=== PATIENT | male | born 1990 | race Caucasian/White ===

== ENCOUNTER 2018-03-07 12:46 | Day surgery (SDC) | payer BC ==
[~2018-03-07 12:46] MED LIST: Buffered Lidocaine 0.9% SYRIN* 5 ML/SYR SYRINGE INTRADERM ONE; Famotidine IV* 10 MG/ML 2 ML (20 mg) IV ONE; Metoclopramide TAB* 10 MG PO ONE
[2018-03-07] MEDS ORDERED: Metoclopramide TAB* 10 MG ONE (13:45)
[2018-03-07] MEDS ORDERED: Famotidine IV* 10 MG/ML 2 ML (20 mg) ONE (13:45)
[2018-03-07] MEDS ORDERED: Clindamycin 900 MG IVPREMIX(* 900 MG/50 ML SDV IV ONE (13:46)
[2018-03-07] MEDS ORDERED: Lidocaine 2% PF * 5 ML VIAL ONE (13:49)
[2018-03-07] MEDS ORDERED: fentaNYL* 50 MCG/ML 2 ML VIAL (100 MCG VIAL) ONE ×2 (13:49→17:43)
[2018-03-07] MEDS ORDERED: Ketorolac INJ* 30 MG/ML 1 ML VIAL ONE (13:49)
[2018-03-07] MEDS ORDERED: Dexamethasone IV* 4 MG/ML 1 ML (4 MG) ONE (13:49)
[2018-03-07] MEDS ORDERED: Cisatracurium* 2 MG/ML MDV 5 ML ONE (13:49)
[2018-03-07] MEDS ORDERED: Ondansetron INJ* 2 MG/ML VIAL ONE (13:49)
[2018-03-07] MEDS ORDERED: Propofol* 10 MG/ML 20 ML BTL IV PUSH ONE (13:49)
[2018-03-07] MEDS ORDERED: Midazolam* 1 MG/ML 5 ML VIAL (5 MG) ONE (13:50)
[2018-03-07] MEDS ORDERED: Ondansetron INJ* 2 MG/ML VIAL IV PRN (15:56)
[2018-03-07] MEDS ORDERED: Naloxone* 0.4 MG/ML 1 ML VIAL IV PRN (15:56)
[2018-03-07] MEDS ORDERED: fentaNYL* 50 MCG/ML 2 ML VIAL (100 MCG VIAL) IV PRN (15:56)
[2018-03-07] MEDS ORDERED: oxyCODONE/Acetamin 5/325 MG* TAB PO PRN (15:56)
[2018-03-07] MEDS ORDERED: HYDROmorphone INJ* 0.5 MG/0.5 ML SYRINGE ONE (16:23)
[2018-03-07 17:47] VITALS: BP 122/92
--- NOTE | 2018-03-07 19:57 | RAD ---
INDICATION: ORIF RIGHT clavicle fracture. COMPARISON: March 02, 2018 radiographs TECHNIQUE: 7.5 seconds fluoroscopy. FINDINGS: Spot images document 2 cortical plates traversing the mid clavicular fracture with anatomic alignment. Small bone fragment noted in the soft tissues superior to the fracture site. Overlying soft tissue swelling. IMPRESSION: Interoperative control films. CPT II Codes: G9500
--- NOTE | 2018-03-14 12:26 | OP ---
DATE OF OPERATION: 03/07/18 - [facility] DATE OF : 89 SURGEON: Arnoldo Sam MD [employer] SUPERVISOR: ROBERTO CARLOS Bar. An customer care assistant was needed for the procedure to aid in positioning of the arm and retraction. ANESTHESIA: General. PRE-OP DIAGNOSIS: Right clavicle displaced midshaft fracture. POST-OP DIAGNOSIS: Right clavicle displaced midshaft fracture. OPERATIVE PROCEDURE: Open reduction internal fixation, right clavicle displaced midshaft fracture. INDICATIONS: Yoandy is 28 years old. He has a very displaced midshaft clavicle fracture. It is well over a couple of centimeters displaced. We talked about the risks of nonunion with surgery as well as improved function in the arm with surgery. He understands the risks of hardware prominence, hardware irritation, nonunion despite surgery, persistent pain, numbness around the incision site. He wants to proceed with surgery. ESTIMATED BLOOD LOSS: 10 mL. COMPLICATIONS: None. FINDINGS: As expected. DESCRIPTION OF PROCEDURE: Yoandy was seen in the preoperative holding area. The correct side, site, and procedure were identified. We came back to the operating room where the arm was prepped and draped in the usual fashion. A time-out was performed. I made an incision in line with the anterior aspect of the clavicle. Dissection was carried down and full-thickness flaps were raised off the clavipectoral fascia. This was incised to expose the proximal clavicle bone. The incision was carried out distally and the fracture site was encountered. The fracture hematoma and soft tissue was evacuated. The distal fragment was located and subperiosteal flaps were raised off the anterior and superior aspect of the clavicle. At this point, I was able to get everything nicely cleaned up. I went ahead and reduced the fracture with several lobster claw clamps and then I placed 1 longitudinal K-wire starting near the area of the posterior AC joint down across the fracture to hold it provisionally reduced. I then took a 2.7-mm recon plate off the [employer] locking modular mini set. This was contoured to the anterior aspect of the clavicle with little bit of a Georgian bend distally followed by a bend and a twist to the plate. This then sat down nicely on the anterior aspect of the clavicle. The plate was secured proximally and distally and then everything was looking good, so I secured it with a couple of more screws proximally. I removed the provisional K-wire and then placed a couple of screws distally in compression mode to achieve additional compression across the reduced fracture. Once the plate was fully secured proximally and distally with 3 screws on either side of the fracture, I went ahead and took a 2.4-mm plate off the set. This was another recon plate. This was placed as a straight plate on the superior aspect of the clavicle. This was secured with a couple of screws proximally and a couple of screws distally. These were all cortical screws. At this point, it was extremely rigid fixation. There was excellent reduction and compression across the fracture. We therefore irrigated out the wound. The clavipectoral fascia was closed with 2-0 Vicryl suture. The skin was closed with 3-0 Monocryl and Steri-Strips. The wound was appropriately dressed with 4x4s and Tegaderm, and the patient was then woken up and taken to the recovery room in stable condition. [id number]/[facility] #: [id number] JACLYN
== END 2018-03-07 18:09 | disposition home or self-care (01) ==
LOC: OR 12:46
PROVIDERS: ATTEND Orthopaedic Surgery Hand Surgery
DX: S42.021A Displaced fracture of shaft of right clavicle, initial encounter for closed fracture (principal); Z72.0 Tobacco use; W18.39XA Other fall on same level, initial encounter; Y93.64 Activity, baseball; Y92.320 Baseball field as the place of occurrence of the external cause
CPT/HCPCS: A9270-GY; C1713; C1776; J1100; J1170; J1885; J2250; J2405; J2704; J3010

== ENCOUNTER → 2019-09-26 12:43 | Day surgery (SDC) | payer BC ==
[~2019-09-26 12:43] MED LIST changes: +Acetaminophen TAB* 325 MG ONE; +Acetaminophen TAB* 325 MG PO PRN; -Buffered Lidocaine 0.9% SYRIN* 5 ML/SYR SYRINGE INTRADERM ONE; +Bupivacaine 0.25% SDV* 30 ML ONE; +Clindamycin 900 MG/D5W BAG(*) 900 MG/50 ML BAG IVPB ONE; +Dexamethasone IV* 4 MG/ML 1 ML (4 MG) ONE; +DiMENhydriNATE IV* 50 MG/ML VIAL IV PUSH PRN; -Famotidine IV* 10 MG/ML 2 ML (20 mg) IV ONE; +Famotidine IV* 10 MG/ML 2 ML (20 mg) IV SLOW PU ONE; +Famotidine IV* 10 MG/ML 2 ML (20 mg) ONE; +HYDROmorphone INJ* 0.5 MG/0.5 ML SYRINGE ONE; +Ketorolac INJ* 30 MG/ML 1 ML VIAL ONE; +Lidocaine 2% PF * 5 ML VIAL ONE; -Metoclopramide TAB* 10 MG PO ONE; +Midazolam* 1 MG/ML 5 ML VIAL (5 MG) ONE; +Naloxone* 0.4 MG/ML 1 ML VIAL IV PRN; +Ondansetron INJ* 2 MG/ML VIAL ONE; +Propofol* 10 MG/ML 20 ML BTL ONE; +fentaNYL* 50 MCG/ML 2 ML VIAL (100 MCG VIAL) ONE; +oxyCODONE TAB* 5 MG TAB PO PRN
[2019-09-26 17:51] VITALS: BP 129/86
--- NOTE | 2019-09-27 05:17 | OP ---
DATE OF OPERATION: 09/26/19 - [facility] DATE OF : [birth year] SURGEON: Arnoldo Sam MD SOCIAL MEDIA MANAGER: ROBERTO CARLOS Bar ANESTHESIOLOGIST: Dr. Walker. ANESTHESIA: General. PRE-OP DIAGNOSIS: Symptomatic hardware, right clavicle. POST-OP DIAGNOSIS: Symptomatic hardware, right clavicle. OPERATIVE PROCEDURE: Removal of right clavicle plates and screws x2 with excision of anterior osteophyte. INDICATIONS: Yoandy is having sensitivity over the plates as it has gotten a sore spot in the middle of the incision. We talked about treatment options, risks and benefits and he wanted to proceed. ESTIMATED BLOOD LOSS: 5 mL. COMPLICATIONS: None. FINDINGS: Of the mid aspect right we have the area of skin irritation of the inferior aspect of the anterior plate, there was a large protruding osteophyte that was rubbing on the skin. DESCRIPTION OF PROCEDURE: Yoandy was seen in the preoperative holding area. The correct site, side, and procedure were identified. We came back to the operating room. He was positioned in the lazy beach chair position with the bump between the shoulder blades. The arm was then prepped out and draped in the usual fashion. A time-out was performed. I reopened his anterior incision and elicited out that area of skin irritation. Dissection was carried down through the scar tissue. I opened up the clavipectoral fascia and exposed both plates. Most interestingly, of the inferior aspect of the anterior plate in the mid portion, right where we had the area of skin irritation where it was protruding osteophyte that was about a cm or more. I skeletonized that osteophyte. I then removed the superior plate first. I then removed the anterior plate. This came out uneventfully. I did have to clear some bony overgrowth around the margins of the plate. The plate came out uneventfully. I went ahead and excised with the osteotome and the rongeur that anterior inferior osteophyte in its entirety. After both plates were removed, around the anterior plate, there was a lot of bony overgrowth. I went ahead and smoothed all the edges down with the rongeur. The wound was then irrigated out copiously. The clavipectoral fascia was closed with 3-0 Vicryl sutures. Subcutaneous tissue was reapproximated with 3-0 Vicryl suture. Skin was closed with 3-0 Monocryl and Steri- Strips. 0.25% Marcaine had been infiltrated all about the area. The wound was dressed with 4x4s and then Tegaderm. He was taken to the Recovery Room in stable condition. [id number]/[facility] #: [id number] MTDD
== END | disposition home or self-care (01) ==
LOC: OREAST 12:43
PROVIDERS: ATTEND Orthopaedic Surgery Hand Surgery
DX: T84.84XA Pain due to internal orthopedic prosthetic devices, implants and grafts, initial encounter (principal); Y83.1 Surgical operation with implant of artificial internal device as the cause of abnormal reaction of the patient, or of later complication, without mention of misadventure at the time of the procedure; S42.021D Displaced fracture of shaft of right clavicle, subsequent encounter for fracture with routine healing; X58.XXXD Exposure to other specified factors, subsequent encounter; Y92.9 Unspecified place or not applicable; Z72.0 Tobacco use
CPT/HCPCS: 88300; A9270-GY; J1100; J1170; J1885; J2250; J2405; J2704; J3010; J3490